=== PATIENT | female | born 1945 | race African-American/Black ===

== ENCOUNTER → 2016-05-25 | Day surgery (SDC) | payer MEDICARE, MEDICAID ==
--- NOTE | 2016-05-23 09:27 | IOP Physician Progress Note ---
IOP Physician Progress Note Problem: impaired thoughts Description of Symptoms: The patient ttalks about enjoying the program "especially" art, but as the session unfolds she starts to talk about her "alters", and her paranoid and delusional thinking. Diagnosis Dupont I: Schizophrenia, paranoid Dupont: II deferred Dupont: III None known. Dupont: IV sensitive to stressors Dupont: V 31-40 Progress Since Last Eval: The patient remains psychotic and delusional. Current Med Management: The patient has a new outside psychiatrist, but we do not yet know his name. Home Meds: Reported Medications Lurasidone Hcl (LATUDA) 40 Mg Tablet, 40 MG PO daily, TAB 03/21/16 [black seed oil] No Conflict Check, TSP PO bid 01/12/16 Cholecalciferol (Vitamin D3) (VITAMIN D-3) 2,000 Unit Capsule, 2000 UNIT PO bid , CAP 01/12/16 [place]-3 Fatty Acids/Fish Oil (FISH OIL 1,000 MG SOFTGEL) 1 Each Capsule, 1000 MG ORAL bid, #30 CAP 0 Refills 01/12/16 Vitamin B Complex (VITAMIN B COMPLEX) 1 Each Capsule, 1 CAP ORAL daily, CAP 0 Refills 01/12/16 Magnesium (MAG-TAB SR) 84 Mg Tablet.er, 400 MG PO, TAB 01/12/16 Risperidone* (RISPERDAL*) 2 Mg Tablet, 2 MG ORAL hs, #30 TAB 0 Refills 01/12/16 Divalproex Sodium* (DEPAKOTE*) 250 Mg Tablet.dr, 250 MG PO Q12HR, TAB 01/12/16 Hydrochlorothiazide* (HYDROCHLOROTHIAZIDE*) 12.5 Mg Capsule, 12.5 MG ORAL DAILY , CAP 01/12/16 Benztropine Mesylate* (BENZTROPINE MESYLATE*) 1 Mg Tablet, 1 MG PO bid, TAB 01/12/16 Carbidopa/Levodopa 25-100 Mg* (SINEMET 25-100 MG TABLET*) 1 Each Tablet, 1 TAB ORAL Q6H, TAB 01/12/16 Appearance: well groomed Affect: labile Mood: anxious Thought Process: illogical Thought Content: paranoia Suicidal/Homicidal Ideations: not present Risk Assessment: low risk at this time Cognition: no abnormalities Accomplishments before DC: The psychosis needs to be brought under control Comments There are no acute physical problems. MARIAH CHAMPION May 23, 2016 09:27
--- NOTE | 2016-05-24 13:57 | Pre-Procedure Note/Attestation ---
Pre-Procedure Note/Attestation Complete Prior to Procedure Planned Procedure: left Procedure Narrative: phaco with IOL Indications for Procedure Pre-Operative Diagnosis: cataract Attestation I attest that I discussed the nature of the procedure; its benefits; risks and complications; and alternatives (and the risks and benefits of such alternatives ), prior to the procedure, with the patient (or the patient's legal community representative). I attest that, if there was a reasonable possibility of needing a blood transfusion, the patient (or the patient's legal community representative) was given the [facility] standardized written summary, pursuant to the Rajesh [place] Blood Safety Act ([place] Health and Safety Code # 1645, as amended). I attest that I re-evaluated the patient just prior to the surgery and that there has been no change in the patient's H&P, except as documented below: BAILEY SHELLEY May 24, 2016 13:57
--- NOTE | 2016-05-24 14:03 | Opthalmology H&P ---
Ophthalmology H&P H&P Chief Complaint: decreased vision in left eye HPI Vision Affects Ability to: read, focus/use eyes together HPI Narrative blurry vision Exam Visual Acuity: OD: 20/160 OS: 20/100 Tension: OD: 17 OS; 17 Eye Exam: normal OU: anterior chambers, corneas, external exam, levator function, marginal reflex distance, palpebral fissure-width, findings: fundus exam - OD: 0.6 OS:0.6, lens - OD: ns OS: ns Assessment/Plan Diagnosis: (1) Cataract Treatment Plan: cataract extraction w/ lens implant Goals of Treatment: improvement of vision, enhance quality of life Attestation Attestation The risks and benefits of the surgery as well as alternative procedures were explained to the patient in detail. BAILEY SHELLEY May 24, 2016 14:03
[~2016-05-25] VITALS: Ht 165.1 cm; Wt 68.9 kg
[2016-05-25] VITALS (10 sets, daily range): BP systolic 117–148; BP diastolic 61–74
[~2016-05-25] MED LIST: Akten 3.5% 1ml Btl LEFT EYE ONE; BENZTROPINE MESY1 MG PO; BSS 15ml BTL ONE; BSS 500ml btl ONE; DEPAKOTE250 MG PO; Dexamethasone 4mg/ml vial ONE; EPINEPHrine 1mg/1ml Amp ONE; FISH OIL 1,0001 EAC4 ORAL; HYDROCHLOROTH12.5 M2 ORAL; LATANOPROST2.5 ML BOTH EYES; LATUDA40 MG PO; LR 1000ml 1,000 ML IVLG SCH; LR 1000ml ONE; Lidocaine 4% Amp ONE; MAG-TAB SR84 MG PO; Maxitrol Opth Oint 3.5gm ONE; Povidone-Iodine 5% opth solution ONE; Pred Forte 1% Opth Susp 1ml ONE; Propofol 10mg/ml 20ml IV ONE; RISPERDAL2 MG ORAL; SIMBRINZA 1%-0.28 ML OP; SINEMET 25-1001 EAC1 ORAL; Sodium Hyaluronate 14 mg/ml 0.85ml ONE; Tobramycin Op Soln 0.3% LEFT EYE ONE; VITAMIN B COMP1 EAC2 ORAL; VITAMIN D-32000 UNI1 PO; black seed oil PO; fentaNYL 100 mcg/2 mL IV ONE; fentaNYL 100 mcg/2 mL IV PRN
[2016-05-25] MEDS: Tropicamide 1% Opth Soln LEFT EYE SCH ×3 (11:05→11:28)
[2016-05-25] MEDS: Cyclopentolate 1% Opth Sol LEFT EYE SCH ×3 (11:06→11:29)
[2016-05-25] MEDS: Phenylephrine 2.5% Op Soln LEFT EYE SCH ×3 (11:07→11:29)
--- NOTE | 2016-05-25 12:06 | Anethesia Preoperative Eval ---
Anesthesia Pre-op PMH/ROS General Date of Evaluation: May 25, 2016 Time of Evaluation: 11:40 Anesthesiologist: Dorinda ASA Score: ASA 3 Mallampati Score Class I : Soft palate, uvula, fauces, pillars visible Class II: Soft palate, uvula, fauces visible Class III: Soft palate, base of uvula visible Class IV: Only hard plate visible Mallampati Classification: Class II Surgeon: Chani Diagnosis: L eye cataract Surgical Procedure: Leye cataract extraction with IOL Anesthesia History: none Family History: no anesthesia problems Allergies: Coded Allergies: ASPIRIN (Verified Allergy, Intermediate, chest pain, 05/25/16) unknown acid reflux IBUPROFEN (Verified Allergy, Mild, chest pain, 05/25/16) acid reflux IODINE (Verified Allergy, Mild, Rash, 01/09/16) Medications: see eMAR Past Medical History Cardiovascular: Reports: HTN, Denies: CAD, NV, arrhythmia, other, valve dz Pulmonary: Denies: COPD, PAT, asthma, other Gastrointestinal/Genitourinary: Reports: GERD, Denies: CRI, ESRD, other Neurologic/Psychiatric: Reports: dementia, other - Parkinsons schizophrenia, Denies: CVA, TIA, depression/anxiety Endocrine: Reports: DM, Denies: hypothyroidism, other, steroids HEENT: Reports: cataract (L), cataract (R), Denies: [place] (L), [place] (R), glaucoma, other Hematology/Immune: Denies: DVT, anemia, bleeding disorder, other Musculoskeletal/Integumentary: Denies: DDD, DJD, OA, RA, edema, other PMH Narrative: as above PSxH Narrative: see chart Anesthesia Pre-op Phys. Exam Physician Exam Last Vital Signs Date Time Temp Pulse Resp B/P Pulse Ox O2 Delivery O2 Flow Rate FiO2 05/25/16 11:34 98.5 69 18 141/71 100 Room Air Constitutional: NAD Neurologic: CN 2-12 intact Cardiovascular: RRR, no M/R/G Respiratory: CTA Gastrointestinal: S/NT/ND Airway Exam Mallampati Score: Class II MO: limited Neck: stiff ROM: limited Teeth: missing Dentures: no lower, no upper Anesthesia Pre-op A/P Labs see chart Studies Pre-op Studies: EKG - NSR Risk Assessment & Plan Assessment: ASA 3 Plan: MAC Status Change Before Surgery: No Pre-Antibiotics Drug: none EMILY RAND M.D. May 25, 2016 12:06
--- NOTE | 2016-05-25 15:04 | Immediate Post-Op Evaluation ---
Immediate Post-Op Evalulation Immediate Post-Op Evalulation Procedure: L eye cataract extraction Date of Evaluation: May 25, 2016 Time of Evaluation: 12:20 IV Fluids: 200 Blood Products: none Estimated Blood Loss: none Urinary Output: none Blood Pressure Systolic: 116 Blood Pressure Diastolic: 72 Pulse Rate: 78 Respiratory Rate: 20 O2 Sat by Pulse Oximetry: 98 Temperature (Fahrenheit): 97.6 Pain Score (1-10): 1 Nausea: No Vomiting: No Complications none Patient Status: awake, patent, none Hydration Status: adequate EMILY RAND M.D. May 25, 2016 15:03
--- NOTE | 2016-05-25 15:05 | 48 Hour Post Anesthesia Eval ---
Post Anesthesia Evaluation Procedure: L eye cataract extraction Date of Evaluation: May 25, 2016 Time of Evaluation: 15:04 Blood Pressure Systolic: 124 0: 72 Pulse Rate: 68 Respiratory Rate: 20 Temperature (Fahrenheit): 97.6 O2 Sat by Pulse Oximetry: 99 Airway: patent Nausea: No Vomiting: No Pain Intensity: 1 Hydration Status: adequate Cardiopulmonary Status: stable Mental Status/LOC: patient returned to baseline Follow-up Care/Observations: n/a Post-Anesthesia Complications: none Follow-up care needed: ready to discharge EMILY RAND M.D. May 25, 2016 15:05
--- NOTE | 2016-05-28 09:08 | Brief Operative Note ---
Immediate Post Operative Note Operative Note Chief Complaint: blurry vision Pre-op Diagnosis: cataract, OS Procedure: Phaco with IOL, OS Post-op Diagnosis: Pseudophakia, OS Post-op Diagnosis: same as pre-op Findings: consistent w/pre-op dx studies Surgeon: Chani Anesthesiologist: Dorinda Anesthesia: general, MAC Specimen: none Complications: none Estimated Blood Loss: none Drains: none Implant(s) used?: Yes BAILEY SHELLEY May 28, 2016 09:08
--- NOTE | 2016-05-28 09:53 | Operative Note - PDOC ---
Operative Note Operative Note Date of Operation/Procedure: May 25, 2016 Chief Complaint: blurry vision Pre-op Diagnosis: cataract, OS Procedure: Phaco with IOL, OS Post-op Diagnosis: Pseudophakia, OS Post-op Diagnosis: same as pre-op Operative Findings: consistent w/pre-op dx studies Surgeon: Chani Anesthesiologist: Dorinda Anesthesia: general, MAC Specimen: none Complications: none Estimated Blood Loss: none Drains: none Implant(s) used?: Yes Indications for Procedure cataract Description of Procedure This patient has been complaining visually significant cataract in the affected eye with the best corrected visual acuity under moderate glare conditions worse. The patient complains of difficulties with glare in performing activities of daily living and wants to manage personal affairs with comfort and accuracy and see well enough to move with safety at home and outdoors. ~~~ The risks, benefits and alternatives of the procedure were discussed with the patient in the office prior to scheduling surgery. All questions from the patient were answered after the surgical procedure was explained in detail. The risks of the procedure as explained to the patient include, but are not limited to, pain, infection, bleeding, loss of vision, retinal detachment, need for further surgery, loss of lens nucleus, double vision, etc. Alternative procedures were discussed which include, to do nothing or seek a second opinion. Informed consent for this procedure was obtained from the patient. The patient was referred to a primary care physician for a cardiopulmonary clearance prior to surgery, after proper evaluation was done patient was properly scheduled for outpatient surgery. The patient was brought to the operating room where the anesthesiologist established I.V. lines and cardiac monitoring leads. Mild intravenous sedation was administered.~~ The patient was then prepared with a 5% solution of povidone -iodine to the conjunctival fornix and lashes, and a 10% solution of povidone- iodine to the lids and periorbital skin. The patient was then draped in the usual sterile fashion. A lid speculum was then placed in the operative eye. A keratome blade was then used to create a biplanar incision into the anterior chamber. Viscoelastics was then instilled into the anterior chamber. A capsulorrhexis was then fashioned with an utrata forceps followed by hydrodissection and hydro delineation of the lens nucleus . Paracentesis incision was made at 3 o'clock with sharp blade. The phacoemulsification unit, after being properly adjusted~ and tested, was then used to emulsify the nucleusthen aspiration and irrigation of residual cortical material.. Healon was then instilled into the anterior chamber. The corneal wound was then enlarged to the size of the optic with the thomas keratome blade. The intraocular lens was then inspected for right power and size and thought to be satisfactory. Then the lens was gently placed in the capsular bag. Positioning within the capsular bag was confirmed by direct visualization. Optic centration was accomplished with a Sins[place] hook. Viscoelastics~ was removed from the anterior chamber using the irrigation and aspiration unit. The corneal wound was then tested for leaks and none were found. The lid speculum were then removed. Sponge and needle counts were correct. An eye patch and shield were placed over the operative eye. The patient was taken to the recovery room in stable condition. There were no complications. The patient tolerated the procedure well. The patient was then transferred to the ambulatory surgery unit in stable and satisfactory condition , was given detailed written instructions and asked to follow up~ in the office the next day. ~ ~ Dictated & Transcribed: Radha Audra COOK JAMES May 28, 2016 09:53
== END | disposition home or self-care (01) ==
LOC: SUR 07:11
DX: H26.9 Unspecified cataract (principal); E11.22 Type 2 diabetes mellitus with diabetic chronic kidney disease; I12.9 Hypertensive chronic kidney disease with stage 1 through stage 4 chronic kidney disease, or unspecified chronic kidney disease; N18.3 Chronic kidney disease, stage 3 (moderate); G20 Parkinson's disease; F02.80 Dementia in other diseases classified elsewhere, unspecified severity, without behavioral disturbance, psychotic disturbance, mood disturbance, and anxiety; F31.81 Bipolar II disorder; F20.9 Schizophrenia, unspecified; K21.9 Gastro-esophageal reflux disease without esophagitis; M75.91 Shoulder lesion, unspecified, right shoulder; Z88.6 Allergy status to analgesic agent; Z88.3 Allergy status to other anti-infective agents; Z91.041 Radiographic dye allergy status
CPT/HCPCS: 66984; 82962; J0171; J1100; J2250; J2704; J3010; J3370; J7120; V2632; 94003; 94150